=== PATIENT | male | born 2000 | race Caucasian/White ===

== ENCOUNTER 2024-01-28 21:37 | Emergency (ER) | payer MEDICAID, SELFPAY ==
[2024-01-28] VITALS (10 sets, daily range): BP systolic 132–161; BP diastolic 78–99; PULSE 59–76; RESP 18; TEMP 36.8; O2SAT 94–99
--- NOTE | 2024-01-28 22:14 | ED.GENADUL_ITS ---
Discharge Plan Disposition Patient Disposition: Home Condition: Improving Discharge Details Clinical Impression: Acute streptococcal pharyngitis, Abdominal pain Primary Care Provider: Rowena,Local ED Provider: Ben Fitch Home Meds and New Rx's Prescriptions: New clindamycin HCl 300 mg capsule 300 mg PO TID 10 Days Qty: 30 0RF Discharge Instructions Instructions: Pharyngitis (ED), Abdominal Pain (ED) HPI General Date/Time Provider Initiated Documentation: 01/28/24 21:39 . HPI Narrative: 23-year-old male presents with vomiting diarrhea and abdominal discomfort today. Does have a sore throat. Related Data Home Medications Medication Instructions Recorded Confirmed clindamycin HCl 300 mg capsule 300 mg PO TID 10 days #30 caps 01/28/24 Previous Rx's Medication Instructions Recorded clindamycin HCl 300 mg capsule 300 mg PO TID 10 days #30 caps 01/28/24 Allergies Allergy/AdvReac Type Severity Reaction Status Date / Time Cefalexin Allergy Other (See Uncoded 01/28/24 22:39 Comment) General Stated Complaint: Abd Prob CANDI: 3 Review of Systems Narrative: Review of Systems Constitutional: negative Eyes: negative ENT: Sore throat Cardiovascular: negative Respiratory: negative Gastrointestinal: Vomiting diarrhea abdominal pain : negative Musculoskeletal: negative Skin: negative Neurologic: negative Psych: negative Exam Narrative Exam Narrative: Physical Examination General: alert, awake, cooperative, resting comfortably, no acute distress HEENT: normocephalic, atraumatic; PERRL, EOM intact, conjunctiva normal; no nasal discharge; moist mucous membranes, oral and pharyngeal mucosa normal, tolerating secretions Neck: supple, trachea midline; full ROM Chest: normal to inspection Respiratory: normal respiratory effort, speaking in full sentences GI: abdomen soft, non-tender, non-distended; no palpable mass or hepatosplenomegaly Skin: no lesions, rashes or trauma appreciated Neuro: AAOx3, normal speech, moving all extremities Psych: Appropriate mood and affect Course Vital Signs Vital signs: Vital Signs Temperature 36.8 C 01/28/24 21:38 Pulse 72 01/28/24 21:38 Respiratory Rate 18 01/28/24 21:38 Blood Pressure 161/84 H 01/28/24 21:38 Pulse Oximetry 98 01/28/24 21:38 Temperature 36.8 C 01/28/24 21:38 Temperature Source Oral 01/28/24 21:38 Pulse 72 01/28/24 21:38 Respiratory Rate 18 01/28/24 21:38 Respiratory Effort Normal 01/28/24 21:41 Blood Pressure 161/84 H 01/28/24 21:38 Pulse Oximetry 98 01/28/24 21:38 Pain Level 8 01/28/24 21:38 Medical Decision Making 23-year-old male presents with nausea vomiting abdominal discomfort over the last several hours, also endorses mild sore throat. Speaking full sentences tolerating secretions normal voice. Afebrile nontoxic nonperitoneal. Consider viral gastroenteritis versus strep pharyngitis versus mesenteric adenitis lower suspicion for cholecystitis or appendicitis. Screening labs fluids strep swab antiemetics close reassessment 22: 55 strep positive likely contributing to abdominal symptoms. Resting comfortably no active vomiting. Hemodynamically stable. Treating empirically with clindamycin as patient has a cephalosporin allergy. Home care instruction return precautions given Quality:SDOH Health Related Social Needs: No Data to Display PFSH All Active Problems (Updated 01/28/24 @ 22:55 by Ben Fitch MD) Abdominal pain (Acute) Acute streptococcal pharyngitis (Acute) Social History Smoking/Tobacco Use Status: Current every day Tobacco Type: cigarettes Smoking risk assessment performed?: Yes Drug use: Daily Substance use type: marijuana Housing: homeless Do you feel safe at home: Yes PAWSS Have you Been Recently Intoxicated or Drunk Within the Last 30 days?: No Have you Ever Experienced Previous Episodes of Alcohol Withdrawal?: No Have you ever Experienced Withdrawal Seizures?: No Have you ever Experienced Delirium Tremens(DT)s?: No Have you ever undergone Alcohol Rehabilitation Treatment (i.e, inpt ot outpatient treatment programs)?: No Have you ever Experienced Blackouts?: No Have you ever Combined Alcohol with other Downers within the last 90 days?: No Have you ever Combined Alcohol with any other Substance of Abuse during the last 90 days?: No Positive Blood Alcohol level on Presentation? [PCS.BAL]: No Evidence of Increased Autonomic Activity (i.e. HR>120, tremor, sweating, agitation, nausea)?: No Result: 0
[2024-01-28] MEDS: Normal Saline 1,000 ML 1000 ML IV (22:15)
[2024-01-28] MEDS: Ondansetron 4 MG/2 ML VIAL IVP (22:15)
[2024-01-28 22:17] LABS: Abs Immature Grans 0.08 10^3/uL (0.0-0.06); Absolute Basophil Count 0.06 10^3/uL (0.0-0.2); Absolute Eosinophil Count 0.19 10^3/uL (0.0-0.7); Absolute Lymphocyte Count 3.64 10^3/uL (1.2-3.4); Absolute Monocyte Count 1.02 10^3/uL (0.1-0.8); Absolute Neutrophil Count 9.39 10^3/uL (1.2-6.7); Basophils % 0.4; Eosinophils % 1.3; HCT 41.3 % (40.0-50.0); HGB 13.7 g/dL (13.5-17.5); Immature Grans % 0.6; Lymphocytes % 25.3; MCH 29.9 pg (27.0-33.0); MCHC 33.2 % (32.0-36.0); MCV 90 fL (80-95); Monocytes % 7.1; Neutrophils % 65.3; Platelet Count 408 10^3/uL (130-400); RBC 4.58 10^6/uL (4.36-5.78); RDW 11.9 % (11.8-14.1); RDW-SD 39.2 fL; WBC 14.38 10^3/uL (4.4-10.8)
[2024-01-28 22:31] LABS: ALT 23 U/L (16-63); AST 16 U/L (15-37); Albumin 3.8 g/dL (3.4-5.0); Alkaline Phosphatase 87 U/L (46-116); Anion Gap 9.3 mmol/L (3-11); BUN 14 mg/dL (7-18); Bilirubin, Total 0.4 mg/dL (0.2-1.0); CO2 29.7 mmol/L (21.0-32.0); CREATININE 1.1 mg/dL (0.70-1.30); Chloride 101 mmol/L (98-107); Estimated GFR 97.95 (mL/min/1.73m2); Glucose 104 mg/dL (74-106); Lipase 24 U/L (16-77); Potassium 3.6 mmol/L (3.5-5.1); Sodium 140 mmol/L (136-145); Total Protein 8.1 g/dL (6.4-8.2)
[2024-01-28] MEDS: Dexamethasone 10 MG/ML VIAL IVP (22:37)
[2024-01-28] MEDS: Clindamycin 300 MG CAP PO (22:45)
== END 2024-01-28 23:10 | disposition home or self-care (01) ==
PROVIDERS: Emergency Provider Emergency Medicine
DX: J02.0 Streptococcal pharyngitis (principal); R11.2 Nausea with vomiting, unspecified; R19.7 Diarrhea, unspecified; R07.0 Pain in throat
CPT/HCPCS: 80053; 83690; 87880; 96361; 96374; 96375; 99284; 85025; 99283; J1100; J2405